=== PATIENT | male | born 1960 | race African-American/Black ===

== ENCOUNTER 2016-11-06 10:40 | Emergency (ER) | payer OTHER ==
[~2016-11-06] VITALS: Ht 182.9 cm; Wt 97.1 kg
[~2016-11-06 10:40] MED LIST: CARISOPRODOL 3350 MG PO; FLEXERIL PO; IBUPROFEN 600600 M1 PO; IBUPROFEN 800800 MG PO; MEDROL DOSPAK21 TAB PO; MEDROLDOSEPACK PO; NAPROSYN500 MG PO; NOHOMEMEDICATIONS; NORCO 5-325 TA1 EACH PO; PERCOCET 5-3251 EACH PO; SEROQUEL 50 MG50 MG PO; TRAMADOL 50 MG50 MG PO; ULTRAM 50MG TAB50 MG PO; ZPAK PO
[2016-11-06] MEDS ORDERED: NORCO 5-325 TA1 EACH PO (11:30)
[2016-11-06 11:57] VITALS: BP 130/74
== END 2016-11-06 11:57 | disposition home or self-care (01) ==
LOC: ER 10:40
DX: S63.501A Unspecified sprain of right wrist, initial encounter (principal); G89.29 Other chronic pain; M54.9 Dorsalgia, unspecified; F17.210 Nicotine dependence, cigarettes, uncomplicated; F10.99 Alcohol use, unspecified with unspecified alcohol-induced disorder; W01.0XXA Fall on same level from slipping, tripping and stumbling without subsequent striking against object, initial encounter; Y93.89 Activity, other specified; Y92.89 Other specified places as the place of occurrence of the external cause; Y99.8 Other external cause status

== ENCOUNTER 2016-12-04 16:11 | Emergency (ER) | payer OTHER ==
[~2016-12-04] VITALS: Ht 180.3 cm; Wt 89.4 kg
[2016-12-04] MEDS ORDERED: IBUPROFEN 600600 M1 PO (17:36)
[2016-12-04 17:55] VITALS: BP 115/86
== END 2016-12-04 17:57 | disposition home or self-care (01) ==
LOC: ER 16:11
DX: S69.81XA Other specified injuries of right wrist, hand and finger(s), initial encounter (principal); G89.29 Other chronic pain; F10.99 Alcohol use, unspecified with unspecified alcohol-induced disorder; F17.210 Nicotine dependence, cigarettes, uncomplicated; Z98.890 Other specified postprocedural states; X58.XXXA Exposure to other specified factors, initial encounter; Y93.89 Activity, other specified; Y92.89 Other specified places as the place of occurrence of the external cause; Y99.8 Other external cause status

== ENCOUNTER 2017-04-21 12:39 | Emergency (ER) | payer OTHER ==
[~2017-04-21] VITALS: Ht 182.9 cm; Wt 95.7 kg
[~2017-04-21 12:39] MED LIST changes: +HYDROCODONE-AP1 EAC6 PO
[2017-04-21] MEDS ORDERED: IBUPROFEN 600600 M1 PO (13:01)
[2017-04-21] MEDS ORDERED: TIZANIDINE HCL4 MG PO (13:01)
== END 2017-04-21 13:36 | disposition home or self-care (01) ==
LOC: ER 12:39
DX: S39.012A Strain of muscle, fascia and tendon of lower back, initial encounter (principal); F17.210 Nicotine dependence, cigarettes, uncomplicated; G89.29 Other chronic pain; Z98.890 Other specified postprocedural states; W00.9XXA Unspecified fall due to ice and snow, initial encounter; Y93.89 Activity, other specified; Y92.89 Other specified places as the place of occurrence of the external cause; Y99.8 Other external cause status

== ENCOUNTER 2019-03-31 16:12 | Emergency (ER) | payer OTHER ==
[~2019-03-31] VITALS: Ht 182.9 cm; Wt 91.2 kg
[~2019-03-31 16:12] MED LIST changes: +TIZANIDINE HCL4 MG PO
[2019-03-31] MEDS ORDERED: SUBOXONE 8 MG-1 EAC3 SUBLING (16:25)
[2019-03-31] MEDS ORDERED: IBUPROFEN 800800 M1 PO (17:09)
[2019-03-31 17:39] VITALS: BP 169/94
== END 2019-03-31 17:49 | disposition home or self-care (01) ==
LOC: ER 16:12
DX: S66.811A Strain of other specified muscles, fascia and tendons at wrist and hand level, right hand, initial encounter (principal); S66.812A Strain of other specified muscles, fascia and tendons at wrist and hand level, left hand, initial encounter; S16.1XXA Strain of muscle, fascia and tendon at neck level, initial encounter; G89.29 Other chronic pain; M54.9 Dorsalgia, unspecified; F17.210 Nicotine dependence, cigarettes, uncomplicated; Z98.890 Other specified postprocedural states; V89.2XXA Person injured in unspecified motor-vehicle accident, traffic, initial encounter; Y93.89 Activity, other specified; Y92.89 Other specified places as the place of occurrence of the external cause; Y99.8 Other external cause status